=== PATIENT | male | born 1975 | race African-American/Black ===

== ENCOUNTER 2020-08-08 10:42 | Inpatient (IN) | payer OTHER, MEDICAID ==
[~2020-08-08] VITALS: Ht 180.3 cm; Wt 75.6 kg
[~2020-08-08 10:42] MED LIST: BENZ0.5T44 PO; FLUD25I IM
[2020-08-08] MEDS ORDERED: LORazepam 2 MG/ML VIAL IM ONE (11:15)
[2020-08-08] MEDS ORDERED: DiphenhydrAMINE HCL 50 MG/ML VIAL IM ONE (11:15)
[2020-08-08] MEDS ORDERED: HALOPERIDOL LACTATE 5 MG/ML VIAL IM ONE (11:15)
[2020-08-08] MEDS ORDERED: HALOPERIDOL 5 MG TABLET PO PRN (12:15)
[2020-08-08] MEDS ORDERED: ZOLPIDEM TARTRATE 10 MG TABLET PO PRN (12:15)
[2020-08-08] MEDS: BENZTROPINE MESYLATE 1 MG TABLET PO SCH (12:15)
[2020-08-08] MEDS: FluPHENAZine DECANOATE 25 MG/ML IM SCH (12:15)
[2020-08-08 16:23] LABS: BASOPHILS % (AUTO) 1.2 % (0.0-2.0); EOSINOPHILS % (AUTO) 2.9 % (1.0-6.0); HEMATOCRIT 39.2 % (41-53); HEMOGLOBIN 12.9 g/dL (13.5-17.5); LYMPHOCYTES # (AUTO) 2.1 K/uL (1.0-4.8); LYMPHOCYTES % (AUTO) 36.7 % (22.0-44.0); MEAN CORPUSCULAR HGB CONC 32.9 G/dL (31.0-37.0); MEAN CORPUSCULAR VOLUME 76 fL (80-100); MONOCYTES # (AUTO) 0.5 K/uL (0.1-1.0); MONOCYTES % (AUTO) 9.6 % (2.0-9.0); NEUTROPHILS # (AUTO) 2.8 K/uL (1.8-7.7); NEUTROPHILS % (AUTO) 49.6 % (40.0-70.0); PLATELET COUNT (AUTO) 318 K/uL (150-450); RED BLOOD CELL COUNT(AUTO) 5.15 MIL/uL (4.50-5.90); RED CELL DISTRIBUTION WIDTH 14.5 % (11.5-14.5)
[2020-08-08 16:38] LABS: ANION GAP 6 mmol/L (8-16); CALCIUM, TOTAL 9.2 mg/dL (8.8-10.5); CARBON DIOXIDE 31 mmol/L (22-29); CHLORIDE 106 mmol/L (98-107); CREATININE 1.01 mg/dL (0.60-1.30); GLOMERULAR FILTR. RATE CALC > 60 mL/min (>60); GLUCOSE,RANDOM 89 mg/dL (70-110); POTASSIUM 4.2 mmol/L (3.5-5.1); SODIUM SERUM 143 mmol/L (136-145); UREA NITROGEN, BLOOD 10 mg/dL (7-18)
[2020-08-08 16:43] LABS: ALANINE AMINOTRANSFERASE 36 U/L (12-78); ALBUMIN 3.6 g/dL (3.4-5.0); ALKALINE PHOSPHATASE 95 U/L (46-116); ASPARTATE AMINOTRANSFERASE 37 U/L (15-37); BILIRUBIN,TOTAL 0.7 mg/dL (0.1-1.0); TOTAL PROTEIN, SERUM 7.5 g/dL (6.4-8.2)
[2020-08-08 17:22] LABS: COVID AG,FIA SOURCE NASOPHARYNGEAL
[2020-08-08] MEDS: FluPHENAZine HCL 10 MG TABLET PO SCH (21:00)
[2020-08-08 21:18] VITALS: BP 119/86
[2020-08-09 03:33] VITALS: BP 144/83
[2020-08-09 08:30] VITALS: BP 114/81
[2020-08-09] MEDS ORDERED: PETROLATUM,WHITE 28 GM JELLY TP PRN (08:30)
[2020-08-09] MEDS ORDERED: CloNIDine HCL 0.1 MG TABLET PO PRN (08:30)
[2020-08-09] MEDS ORDERED: BACITRACIN 28 GM OINTMENT TP PRN (08:30)
[2020-08-09] MEDS ORDERED: ACETAMINOPHEN 325 MG TABLET PO PRN (08:30)
[2020-08-09] MEDS ORDERED: ALBUTEROL SULFATE HFA 90 MCG/PUFF 8 GM INHALER IH PRN (08:30)
[2020-08-09] MEDS ORDERED: IBUPROFEN 600 MG TABLET PO PRN (08:30)
[2020-08-09] MEDS ORDERED: BENZOCAINE/MENTHOL LOZENGE PO PRN (08:30)
[2020-08-09] MEDS ORDERED: LOPERAMIDE HCL 2 MG CAPSULE PO PRN (08:30)
[2020-08-09] MEDS ORDERED: OMEPRAZOLE 20 MG CAPSULE PO PRN (08:30)
[2020-08-09] MEDS ORDERED: DOCUSATE SODIUM 100 MG CAPSULE PO PRN (08:30)
[2020-08-09] MEDS ORDERED: MAGNESIUM HYDROXIDE SUSPENSION 30 ML UDCUP PO PRN (08:30)
[2020-08-09] MEDS: BENZTROPINE MESYLATE 1 MG TABLET PO SCH ×2 (08:44→16:45)
[2020-08-09] MEDS: ONDANSETRON HCL 4 MG TABLET PO PRN (13:03)
[2020-08-09 16:11] VITALS: BP 114/76
[2020-08-09] MEDS: LORazepam 2 MG TABLET PO PRN (16:45)
[2020-08-09] MEDS: FluPHENAZine HCL 10 MG TABLET PO SCH (20:32)
[2020-08-10 02:22] VITALS: BP 113/68
[2020-08-10] MEDS: BENZTROPINE MESYLATE 1 MG TABLET PO SCH ×2 (08:13→17:23)
[2020-08-10 08:35] VITALS: BP 123/78
[2020-08-10] MEDS ORDERED: NICOTINE 14 MG/24 HOUR PATCH TD PRN (10:45)
[2020-08-10] MEDS: MAG HYDROX/AL HYDROX/SIMETH ES 30 ML SUSPENSION UDCUP PO PRN (12:51)
[2020-08-10 16:14] VITALS: BP 122/89
[2020-08-10] MEDS: FluPHENAZine HCL 10 MG TABLET PO SCH (20:39)
[2020-08-11 00:17] VITALS: BP 141/97
[2020-08-11] MEDS: BENZTROPINE MESYLATE 1 MG TABLET PO SCH ×2 (08:32→16:53)
[2020-08-11 08:46] VITALS: BP 142/89
[2020-08-11] MEDS: FluPHENAZine DECANOATE 25 MG/ML IM SCH (09:18)
[2020-08-11] MEDS: ONDANSETRON HCL 4 MG TABLET PO PRN (11:11)
[2020-08-11 16:15] VITALS: BP 128/83
[2020-08-11] MEDS: MAG HYDROX/AL HYDROX/SIMETH ES 30 ML SUSPENSION UDCUP PO PRN (16:59)
[2020-08-11] MEDS: FluPHENAZine HCL 10 MG TABLET PO SCH (20:51)
[2020-08-12] MEDS: LORazepam 2 MG TABLET PO PRN (03:05)
[2020-08-12 03:18] VITALS: BP 129/101
[2020-08-12 08:31] VITALS: BP 105/73
[2020-08-12] MEDS: BENZTROPINE MESYLATE 1 MG TABLET PO SCH (08:51)
== END 2020-08-12 22:29 | disposition home or self-care (01) | DRG 885 ==
LOC: EMS 10:43 → B2X 18:35 → B3A 19:38
PROVIDERS: ADMIT Psychiatry & Neurology Psychiatry; ATTEND Psychiatry & Neurology Psychiatry
DX: F20.9 Schizophrenia, unspecified (principal); F60.9 Personality disorder, unspecified; I10 Essential (primary) hypertension; F17.210 Nicotine dependence, cigarettes, uncomplicated; Z20.828 Contact with and (suspected) exposure to other viral communicable diseases; F41.9 Anxiety disorder, unspecified; G47.00 Insomnia, unspecified; K21.9 Gastro-esophageal reflux disease without esophagitis; K59.00 Constipation, unspecified; F15.10 Other stimulant abuse, uncomplicated; F12.90 Cannabis use, unspecified, uncomplicated; M19.90 Unspecified osteoarthritis, unspecified site; Z88.2 Allergy status to sulfonamides; Z91.012 Allergy to eggs; Z88.8 Allergy status to other drugs, medicaments and biological substances; Z79.899 Other long term (current) drug therapy
CPT/HCPCS: 87426; 99291; G0480; J1200; J1630; J2060; J2680; Q0162

== ENCOUNTER 2021-03-11 11:10 | Inpatient (IN) | payer MEDICARE, MEDICAID ==
[~2021-03-11] VITALS: Ht 179.1 cm; Wt 67.2 kg
[~2021-03-11 11:10] MED LIST changes: -BENZ0.5T44 PO
[2021-03-11 12:54] LABS: BASOPHILS % (AUTO) 0.6 % (0.0-2.0); EOSINOPHILS % (AUTO) 2.2 % (1.0-6.0); HEMATOCRIT 36.5 % (41-53); HEMOGLOBIN 12.4 g/dL (13.5-17.5); LYMPHOCYTES # (AUTO) 1.6 K/uL (1.0-4.8); LYMPHOCYTES % (AUTO) 21.1 % (22.0-44.0); MEAN CORPUSCULAR HEMOGLOBIN 24.7 pg (26.0-34.0); MEAN CORPUSCULAR VOLUME 73 fL (80-100); MONOCYTES # (AUTO) 0.9 K/uL (0.1-1.0); MONOCYTES % (AUTO) 11.1 % (2.0-9.0); PLATELET COUNT (AUTO) 323 K/uL (150-450); RED BLOOD CELL COUNT(AUTO) 5.02 MIL/uL (4.50-5.90); RED CELL DISTRIBUTION WIDTH 16.3 % (11.5-14.5)
[2021-03-11 13:06] LABS: ANION GAP 12 mmol/L (8-16); CALCIUM, TOTAL 9.2 mg/dL (8.8-10.5); CARBON DIOXIDE 24 mmol/L (22-29); CHLORIDE 102 mmol/L (98-107); CREATININE 0.93 mg/dL (0.60-1.30); GLOMERULAR FILTR. RATE CALC > 60 mL/min (>60); GLUCOSE,RANDOM 128 mg/dL (70-110); POTASSIUM 3.7 mmol/L (3.5-5.1); SODIUM SERUM 138 mmol/L (136-145); UREA NITROGEN, BLOOD 16 mg/dL (7-18)
[2021-03-11 13:11] LABS: ALANINE AMINOTRANSFERASE 31 U/L (12-78); ALBUMIN 4.4 g/dL (3.4-5.0); ALKALINE PHOSPHATASE 94 U/L (46-116); ASPARTATE AMINOTRANSFERASE 39 U/L (15-37); BILIRUBIN,TOTAL 1.1 mg/dL (0.1-1.0); TOTAL PROTEIN, SERUM 9.1 g/dL (6.4-8.2)
[2021-03-11] MEDS ORDERED: LORazepam 2 MG TABLET PO PRN (13:15)
[2021-03-11] MEDS ORDERED: HALOPERIDOL 5 MG TABLET PO PRN (13:15)
[2021-03-11 13:28] LABS: GLUCOSE,POINT OF CARE 161 MG/DL (70-110)
[2021-03-11 13:52] LABS: COVID AG,FIA SOURCE NASOPHARYNGEAL
[2021-03-11 19:59] LABS: GLUCOSE,POINT OF CARE 128 MG/DL (70-110)
[2021-03-11 20:54] VITALS: BP 125/75
[2021-03-11] MEDS ORDERED: NICOTINE 14 MG/24 HOUR PATCH TD PRN (22:00)
[2021-03-12 00:53] VITALS: BP 122/71
[2021-03-12] MEDS ORDERED: BACITRACIN 28 GM OINTMENT TP PRN (06:30)
[2021-03-12] MEDS ORDERED: MAGNESIUM HYDROXIDE SUSPENSION 30 ML UDCUP PO PRN (06:30)
[2021-03-12] MEDS ORDERED: DOCUSATE SODIUM 100 MG CAPSULE PO PRN (06:30)
[2021-03-12] MEDS ORDERED: ONDANSETRON HCL 4 MG TABLET PO PRN (06:30)
[2021-03-12] MEDS ORDERED: ACETAMINOPHEN 325 MG TABLET PO PRN (06:30)
[2021-03-12] MEDS ORDERED: ALBUTEROL SULFATE HFA 90 MCG/PUFF 8 GM INHALER IH PRN (06:30)
[2021-03-12] MEDS ORDERED: MAG HYDROX/AL HYDROX/SIMETH ES 30 ML SUSPENSION UDCUP PO PRN (06:30)
[2021-03-12] MEDS ORDERED: CloNIDine HCL 0.1 MG TABLET PO PRN (06:30)
[2021-03-12] MEDS ORDERED: BENZOCAINE/MENTHOL LOZENGE PO PRN (06:30)
[2021-03-12] MEDS ORDERED: PETROLATUM,WHITE 28 GM JELLY TP PRN (06:30)
[2021-03-12] MEDS ORDERED: LOPERAMIDE HCL 2 MG CAPSULE PO PRN (06:30)
[2021-03-12] MEDS ORDERED: OMEPRAZOLE 20 MG CAPSULE PO PRN (06:30)
[2021-03-12 08:39] VITALS: BP 133/83
[2021-03-12 16:10] VITALS: BP 134/89
[2021-03-13 08:28] VITALS: BP 147/79
[2021-03-13 16:13] VITALS: BP 129/81
[2021-03-13] MEDS: IBUPROFEN 600 MG TABLET PO PRN (21:08)
[2021-03-13] MEDS: FluPHENAZine HCL 5 MG TABLET PO SCH (21:08)
[2021-03-14 05:55] VITALS: BP 130/82
[2021-03-14] MEDS: IBUPROFEN 600 MG TABLET PO PRN (15:54)
[2021-03-14 16:03] VITALS: BP 135/82
[2021-03-14] MEDS: FluPHENAZine HCL 5 MG TABLET PO SCH ×2 (20:10→21:00)
[2021-03-15 05:52] VITALS: BP 123/78
[2021-03-15 06:38] VITALS: BP 127/82
[2021-03-15] MEDS: IBUPROFEN 600 MG TABLET PO PRN (06:41)
[2021-03-15] MEDS ORDERED: FLUP5TAB15 PO (10:45)
== END 2021-03-15 12:30 | disposition home or self-care (01) | DRG 885 ==
LOC: EMS 11:12 → B2S 16:43
PROVIDERS: ADMIT Psychiatry & Neurology Psychiatry; ATTEND Psychiatry & Neurology Psychiatry
DX: F25.9 Schizoaffective disorder, unspecified (principal); R45.851 Suicidal ideations; E11.9 Type 2 diabetes mellitus without complications; F60.9 Personality disorder, unspecified; I10 Essential (primary) hypertension; F41.9 Anxiety disorder, unspecified; G47.00 Insomnia, unspecified; K21.9 Gastro-esophageal reflux disease without esophagitis; K59.00 Constipation, unspecified; M19.90 Unspecified osteoarthritis, unspecified site; Z20.822 Contact with and (suspected) exposure to COVID-19; Z87.891 Personal history of nicotine dependence
CPT/HCPCS: 80053; 82962; 85025; 87426; 99285; G0480

== ENCOUNTER 2022-06-23 10:07 | Emergency (ER) | payer MEDICAID, MEDICARE ==
[~2022-06-23] VITALS: Ht 180.3 cm; Wt 71.6 kg
[~2022-06-23 10:07] MED LIST changes: -FLUD25I IM; +FLUP5TAB31 PO
[2022-06-23] MEDS ORDERED: IBUPROFEN 600 MG TABLET PO ONE (11:00)
[2022-06-23] MEDS ORDERED: ACETAMINOPHEN 500 MG TABLET PO ONE (11:00)
[2022-06-23 12:29] VITALS: BP 117/81
== END 2022-06-23 12:31 | disposition home or self-care (01) ==
LOC: EMS 10:09
DX: S00.83XA Contusion of other part of head, initial encounter (principal); E11.9 Type 2 diabetes mellitus without complications; F12.90 Cannabis use, unspecified, uncomplicated; F17.210 Nicotine dependence, cigarettes, uncomplicated; Z88.2 Allergy status to sulfonamides; Z88.8 Allergy status to other drugs, medicaments and biological substances; Z91.012 Allergy to eggs; Z79.899 Other long term (current) drug therapy; Y04.0XXA Assault by unarmed brawl or fight, initial encounter; Y93.89 Activity, other specified; Y92.89 Other specified places as the place of occurrence of the external cause; Y99.8 Other external cause status
CPT/HCPCS: 70486; 99284; Z7502; Z7610

== ENCOUNTER 2022-08-06 21:02 | Emergency (ER) | payer MEDICAID, OTHER ==
[~2022-08-06] VITALS: Ht 172.7 cm; Wt 68.2 kg
[2022-08-06 21:05] VITALS: BP 129/82
== END 2022-08-06 22:45 | disposition left against medical advice (07) ==
LOC: EMS 21:02
DX: Z53.21 Procedure and treatment not carried out due to patient leaving prior to being seen by health care provider (principal)